=== PATIENT | female | born 1980 | race Caucasian/White ===

== ENCOUNTER 2019-03-27 09:24 | Outpatient (REF) | payer MEDICARE, MEDICAID, SELFPAY ==
[2019-03-27 22:26] LABS: Cholesterol 171 mg/dL (50-200); Glucose 91 mg/dL (70-100); HDL Cholesterol 26 mg/dL (40-60); TSH (W/Ref FT4) 3.45 uIU/mL (0.36-3.74); Triglyceride 413 mg/dL (30-150); Vitamin B12 337 pg/mL (193-986); Vitamin D 25 Total 27.4 ng/ml (30-100)
[2019-03-27 22:58] LABS: LDL CHOLESTEROL 84 mg/dL (<100)
== END 2019-03-27 09:44 ==
LOC: NCHCN 09:24
PROVIDERS: PCP Nurse Practitioner Community Health; Visit Provider Nurse Practitioner Family
DX: R53.83 Other fatigue (principal); F41.8 Other specified anxiety disorders; Z86.39 Personal history of other endocrine, nutritional and metabolic disease; E78.89 Other lipoprotein metabolism disorders; E55.9 Vitamin D deficiency, unspecified
CPT/HCPCS: 80061; 82306; 82947; 83721; 82607; 84443

== ENCOUNTER 2020-06-04 12:58 | Outpatient (REF) | payer MEDICARE, MEDICAID, SELFPAY ==
[2020-06-04 13:56] LABS: Abs Immature Grans 0.03 10^3/uL (0.0-0.06); Absolute Basophil Count 0.04 10^3/uL (0.0-0.2); Absolute Eosinophil Count 0.63 10^3/uL (0.0-0.7); Absolute Monocyte Count 0.87 10^3/uL (0.1-0.8); Basophils % 0.4; Eosinophils % 5.8; HCT 42.1 % (36.0-46.0); HGB 14.3 g/dL (11.2-15.7); Immature Grans % 0.3; Lymphocytes % 28.5; MCH 32.5 pg (27.0-33.0); MCV 95.7 fL (80-95); MPV 10.1 fL (8.0-11.0); Nucleated RBC 0 %; Platelet Count 261 10^3/uL (130-400); RDW 12.1 % (11.7-14.6); RDW-SD 42.3 fL; WBC 10.88 10^3/uL (4.4-10.8)
[2020-06-04 15:00] LABS: Vitamin B12 377 pg/mL (193-986)
== END 2020-06-04 13:18 ==
LOC: NCHCN 12:58
PROVIDERS: PCP Nurse Practitioner Community Health; Visit Provider Nurse Practitioner Community Health
DX: D72.829 Elevated white blood cell count, unspecified (principal); E53.9 Vitamin B deficiency, unspecified
CPT/HCPCS: 82607; 85025

== ENCOUNTER 2020-08-27 17:17 | Outpatient (REF) | payer MEDICARE, MEDICAID, SELFPAY ==
--- NOTE | 2020-08-27 15:30 | PAPFT_PTH ---
PATIENT: Diane Landry LOC: [facility]#:[id number] AGE/SX: 40/F ROOM: RE08/27/[address]: Pauline Alcantar : 1980 BED: DIS: 08/27/2020 SPEC #: [id number] RECD: 08/28/20 12:46 STATUS: WILVER [facility]ANG #: [id number] JESSICA: 08/27/20 15:[address]: Pauline Alcantar DEPT: [facility] Cytology RECD BY: Verito Mora Tissues: 1 - CX/ENDOCX FOR PAP SMEARS Procedures: PAP THIN PREP/UVM Screening HPV DNA PROBE Comments: [id number]
== END 2020-08-27 17:18 | disposition home or self-care (01) ==
LOC: NCHCN 17:17
PROVIDERS: PCP Nurse Practitioner Community Health; Visit Provider Nurse Practitioner Community Health
DX: Z12.4 Encounter for screening for malignant neoplasm of cervix (principal); Z11.51 Encounter for screening for human papillomavirus (HPV)
CPT/HCPCS: 88142; 87624

== ENCOUNTER 2021-01-07 16:24 | Outpatient (REF) | payer MEDICARE, MEDICAID, SELFPAY ==
[2021-01-07 14:40] LABS: Abs Immature Grans 0.05 10^3/uL (0.0-0.06); Absolute Basophil Count 0.06 10^3/uL (0.0-0.2); Absolute Eosinophil Count 0.89 10^3/uL (0.0-0.7); Absolute Lymphocyte Count 3.94 10^3/uL (1.2-3.4); Basophils % 0.5; HCT 42.5 % (36.0-46.0); HGB 14.4 g/dL (11.2-15.7); Immature Grans % 0.5; Lymphocytes % 35.5; MCHC 33.9 % (32.0-36.0); MCV 97.5 fL (80-95); Monocytes % 8.6; Neutrophils % 46.9; Nucleated RBC 0 %; Platelet Count 298 10^3/uL (130-400); RBC 4.36 10^6/uL (3.93-5.22); RDW 11.8 % (11.7-14.6); RDW-SD 42.2 fL; WBC 11.11 10^3/uL (4.4-10.8)
[2021-01-07 14:57] LABS: Absolute Monocyte Count 0.96 10^3/uL (0.1-0.8); Absolute Neutrophil Count 5.21 10^3/uL (1.2-6.7)
[2021-01-07 15:24] LABS: Ferritin 52 ng/mL (8-252)
== END 2021-01-07 16:25 | disposition home or self-care (01) ==
LOC: NCHCN 16:24
PROVIDERS: PCP Nurse Practitioner Community Health; Visit Provider Nurse Practitioner Community Health
DX: D72.829 Elevated white blood cell count, unspecified (principal); G25.81 Restless legs syndrome
CPT/HCPCS: 82728; 85025

== ENCOUNTER 2021-02-26 21:24 | Outpatient (REF) | payer MEDICARE, MEDICAID, SELFPAY ==
[2021-02-26 21:51] LABS: Anion Gap 8.6 mmol/L (3-11); BUN 7 mg/dL (7-18); CO2 26.4 mmol/L (21.0-32.0); CREATININE 0.8 mg/dL (0.55-1.02); Calcium 9.2 mg/dL (8.5-10.1); Chloride 104 mmol/L (98-107); Glucose 134 mg/dL (74-106); Potassium 3.8 mmol/L (3.5-5.1); Sodium 139 mmol/L (136-145)
== END 2021-02-26 21:25 | disposition home or self-care (01) ==
LOC: NCHCN 21:24
PROVIDERS: PCP Nurse Practitioner Community Health; Visit Provider Registered Nurse
DX: Z87.442 Personal history of urinary calculi (principal)
CPT/HCPCS: 80048

== ENCOUNTER 2021-07-14 17:26 | Outpatient (REF) | payer MEDICARE, MEDICAID, SELFPAY ==
[2021-07-14 20:21] LABS: Anion Gap 10.6 mmol/L (3-11); BUN 9 mg/dL (7-18); CO2 26.4 mmol/L (21.0-32.0); CREATININE 0.8 mg/dL (0.55-1.02); Calcium 9.1 mg/dL (8.5-10.1); Chloride 102 mmol/L (98-107); Glucose 86 mg/dL (74-106); Potassium 4.1 mmol/L (3.5-5.1); Sodium 139 mmol/L (136-145); TSH (W/Ref FT4) 5.42 uIU/mL (0.36-3.74)
[2021-07-14 20:54] LABS: FREE T4 0.58 ng/dL (0.76-1.46)
== END 2021-07-14 17:27 | disposition home or self-care (01) ==
LOC: NCHCN 17:26
PROVIDERS: PCP Nurse Practitioner Community Health; Visit Provider Nurse Practitioner Family
DX: I10 Essential (primary) hypertension (principal)
CPT/HCPCS: 80048; 84439; 84443

== ENCOUNTER 2022-04-06 10:25 | Outpatient (REF) | payer MEDICARE, MEDICAID, SELFPAY ==
[2022-04-06 14:53] LABS: TSH 8.68 uIU/mL (0.36-3.74)
== END 2022-04-06 10:26 | disposition home or self-care (01) ==
LOC: NCHCN 10:25
PROVIDERS: PCP Nurse Practitioner Community Health; Visit Provider Nurse Practitioner Family
DX: R94.6 Abnormal results of thyroid function studies (principal)
CPT/HCPCS: 84439; 84443

== ENCOUNTER 2022-05-12 10:30 | Outpatient (REF) | payer MEDICARE, MEDICAID, SELFPAY ==
[2022-05-12 15:18] LABS: TSH 4.47 uIU/mL (0.36-3.74)
== END 2022-05-12 10:31 | disposition home or self-care (01) ==
LOC: NCHCN 10:30
PROVIDERS: PCP Nurse Practitioner Community Health; Visit Provider Nurse Practitioner Family
DX: E03.9 Hypothyroidism, unspecified (principal)
CPT/HCPCS: 84443

== ENCOUNTER 2022-07-07 12:15 | Outpatient (REF) | payer MEDICARE, MEDICAID, SELFPAY ==
[2022-07-07 15:40] LABS: ALT 29 U/L (14-59); AST 22 U/L (15-37); Albumin 4.1 g/dL (3.4-5.0); Alkaline Phosphatase 71 U/L (46-116); Anion Gap 14.8 mmol/L (3-11); BUN 10 mg/dL (7-18); Bilirubin, Total 0.3 mg/dL (0.2-1.0); CO2 23.2 mmol/L (21.0-32.0); CREATININE 0.9 mg/dL (0.55-1.02); Calcium 9.5 mg/dL (8.5-10.1); Chloride 99 mmol/L (98-107); Estimated GFR 81.86 (mL/min/1.73m2); Glucose 129 mg/dL (74-106); Potassium 3.7 mmol/L (3.5-5.1); Sodium 137 mmol/L (136-145); TSH 8.68 uIU/mL (0.36-3.74); Total Protein 8.3 g/dL (6.4-8.2)
== END 2022-07-07 12:16 | disposition home or self-care (01) ==
LOC: NCHCN 12:15
PROVIDERS: PCP Nurse Practitioner Community Health; Visit Provider Nurse Practitioner Family
DX: E03.9 Hypothyroidism, unspecified (principal)
CPT/HCPCS: 80053; 84443

== ENCOUNTER 2022-08-17 21:29 | Outpatient (REF) | payer MEDICARE, MEDICAID, SELFPAY ==
[2022-08-17 22:05] LABS: TSH 2.34 uIU/mL (0.36-3.74)
== END 2022-08-17 21:30 | disposition home or self-care (01) ==
LOC: NCHCN 21:29
PROVIDERS: PCP Nurse Practitioner Community Health; Visit Provider Nurse Practitioner Family
DX: E03.9 Hypothyroidism, unspecified (principal)
CPT/HCPCS: 84443

== ENCOUNTER 2023-06-30 09:26 | Outpatient (REF) | payer MEDICARE, MEDICAID, SELFPAY ==
--- OUTSIDE RECORDS SUMMARY | 2023-06-30 09:28 | XMS_ITS | CCD ---
Author Name Unknown Address [address] [place] [address] [phone] Organization Unknown Address [address] [place] [address] [phone] Care Team Providers Care Lithographers Printer Name Role Phone ANTHONY MURRAY Attending Physician [phone] Vital Signs Unknown or Not Available. Allergies Allergy Code Allergy Type Reaction Status CAT GUT SUTURES {Clinical monitoring unavailable} 0 Drug allergy INFECTION Active Procedures Unknown or Not Available. History of Immunizations Unknown or Not Available. Problems Unknown or Not Available. Results Unknown or Not Available. Active Medications Medication Code Dose Units Frequency Route Modificatio n Start Date/Time clonazePAM 1MG Oral Tablet [id number] 1 MILLIGRAMS DAILY ORAL 019 18:33 Prescription Detail TAKE 1 MILLIGRAMS ORAL DAILY LYRICA 100MG ORAL CAPSULE 0 100 MILLIGRAMS THREE TIMES A DAY ORAL 06/27/2018 18:33 Prescription Detail TAKE 100 MILLIGRAMS ORAL THREE TIMES A D AY Sertraline HCl 100MG Oral Tablet [id number] 100 MILLIGRAMS DAILY ORAL 9 18:33 Prescription Detail TAKE 100 MILLIGRAMS ORAL DAILY Medications Administered During Visit Unknown or Not Available. Encounters Encounter Diagnosis Diagnosis Code Start Date Encounter for screening mamm ogram for malignant neoplasm of breast Z1231 07/28/2022 Social History Smoking Status Code Start Date End Date Current every day smoker [id number] 05/23/2002 Patient Decision Aids Unknown or Not Available. Discharge Instructions You were admitted to [facility] on 07/28/2022 14:27 with a principal diagnosis of Encounter for screening mammogram for malignant neoplasm of breast You were discharged from [facility] on 07/28/2022 14:27 Should you have any questions prior to discharge, please contact a member of your healthcare team. If you have left the hospital and have any questions, please contact your primary care physician. Chief Complaint and Reason For Visit Chief Complaint Date of Onset SCR Function Status Unknown or Not Available. Plan of Care Unknown or Not Available. Referral/Transition of Care Unknown or Not Available.
--- OUTSIDE RECORDS SUMMARY | 2023-06-30 09:28 | XMS_ITS | CCD ---
Author Name Unknown Address [address] [place] [address] [phone] Organization Unknown Address [address] [place] [address] [phone] Care Team Providers Care Rosin Barrel Filler Name Role Phone GUILLAUME DE LA CRUZ Attending Physician [phone] Vital Signs Unknown or Not Available. Allergies Allergy Code Allergy Type Reaction Status CAT GUT SUTURES {Clinical monitoring unavailable} 0 Drug allergy INFECTION Active Procedures Unknown or Not Available. History of Immunizations Unknown or Not Available. Problems Unknown or Not Available. Results Unknown or Not Available. Active Medications Medication Code Dose Units Frequency Route Modificatio n Start Date/Time clonazePAM 1MG Oral Tablet 954469 1 MILLIGRAMS DAILY ORAL 019 18:33 Prescription Detail TAKE 1 MILLIGRAMS ORAL DAILY LYRICA 100MG ORAL CAPSULE 0 100 MILLIGRAMS THREE TIMES A DAY ORAL 06/27/2018 18:33 Prescription Detail TAKE 100 MILLIGRAMS ORAL THREE TIMES A D AY Sertraline HCl 100MG Oral Tablet 996460 100 MILLIGRAMS DAILY ORAL 9 18:33 Prescription Detail TAKE 100 MILLIGRAMS ORAL DAILY Medications Administered During Visit Unknown or Not Available. 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 Discharge Instructions You were admitted to [facility] on 08/11/2022 16:12 with a principal diagnosis of Other cardiomyopathies You were discharged from [facility] on 08/11/2022 16:12 Should you have any questions prior to discharge, please contact a member of your healthcare team. If you have left the hospital and have any questions, please contact your primary care physician. Chief Complaint and Reason For Visit Unknown or Not Available. Function Status Unknown or Not Available. Plan of Care Unknown or Not Available. Referral/Transition of Care Unknown or Not Available.
--- OUTSIDE RECORDS SUMMARY | 2023-06-30 09:28 | XMS_ITS | CCD ---
Author Name Unknown Address [address] [place] [address] [phone] Organization Unknown Address [address] [place] [address] [phone] Care Team Providers Care Rn Circulating Name Role Phone ANTHONY MURRAY Attending Physician [phone] Vital Signs Unknown or Not Available. Allergies Allergy Code Allergy Type Reaction Status CAT GUT SUTURES {Clinical monitoring unavailable} 0 Drug allergy INFECTION Active Procedures Unknown or Not Available. History of Immunizations Unknown or Not Available. Problems Unknown or Not Available. Results Unknown or Not Available. Active Medications Medication Code Dose Units Frequency Route Modificatio n Start Date/Time clonazePAM 1MG Oral Tablet 206592 1 MILLIGRAMS DAILY ORAL 019 18:33 Prescription Detail TAKE 1 MILLIGRAMS ORAL DAILY LYRICA 100MG ORAL CAPSULE 0 100 MILLIGRAMS THREE TIMES A DAY ORAL 06/27/2018 18:33 Prescription Detail TAKE 100 MILLIGRAMS ORAL THREE TIMES A D AY Sertraline HCl 100MG Oral Tablet 414563 100 MILLIGRAMS DAILY ORAL 9 18:33 Prescription Detail TAKE 100 MILLIGRAMS ORAL DAILY Medications Administered During Visit Unknown or Not Available. Encounters Encounter Diagnosis Diagnosis Code Start Date Other abnormal and inconclus julio cesar findings on diagnostic imaging of breast R928 08/04/2022 Social History Smoking Status Code Start Date End Date Current every day smoker [id number] 05/23/2002 Patient Decision Aids Unknown or Not Available. Discharge Instructions You were admitted to [facility] on 08/04/2022 12:59 with a principal diagnosis of Other abnormal and inconclusive findings on diagnostic imaging of breast You were discharged from [facility] on 08/04/2022 12:59 Should you have any questions prior to discharge, please contact a member of your healthcare team. If you have left the hospital and have any questions, please contact your primary care physician. Chief Complaint and Reason For Visit Chief Complaint Date of Onset CALLBACK 03/08/23 Function Status Unknown or Not Available. Plan of Care Unknown or Not Available. Referral/Transition of Care Unknown or Not Available.
--- OUTSIDE RECORDS SUMMARY | 2023-06-30 09:29 | XMS_ITS | CCD ---
Author Name Unknown Address [address] [place] [address] [phone] Organization Unknown Address [address] [place] [address] [phone] Care Team Providers Care Career Manager Name Role Phone GUILLAUME DE LA CRUZ Attending Physician [phone] GUILLAUME DE LA CRUZ Rounding (Secondary) Physician [phone] Vital Signs Unknown or Not Available. Allergies Allergy Code Allergy Type Reaction Status CAT GUT SUTURES {Clinical monitoring unavailable} 0 Drug allergy INFECTION Active Procedures Unknown or Not Available. History of Immunizations Unknown or Not Available. Problems Unknown or Not Available. Results Unknown or Not Available. Active Medications Medication Code Dose Units Frequency Route Modificatio n Start Date/Time clonazePAM 1MG Oral Tablet 462898 1 MILLIGRAMS DAILY ORAL 019 18:33 Prescription Detail TAKE 1 MILLIGRAMS ORAL DAILY LYRICA 100MG ORAL CAPSULE 0 100 MILLIGRAMS THREE TIMES A DAY ORAL 06/27/2018 18:33 Prescription Detail TAKE 100 MILLIGRAMS ORAL THREE TIMES A D AY Sertraline HCl 100MG Oral Tablet 008611 100 MILLIGRAMS DAILY ORAL 9 18:33 Prescription Detail TAKE 100 MILLIGRAMS ORAL DAILY Medications Administered During Visit Unknown or Not Available. Encounters Encounter Diagnosis Diagnosis Code Start Date Other cardiomyopathies I428 2 Social History Smoking Status Code Start Date End Date Current every day smoker [id number] 05/23/2002 Patient Decision Aids Unknown or Not Available. Discharge Instructions You were admitted to [facility] on 01/28/2022 08:10 with a principal diagnosis of Other cardiomyopathies You were discharged from [facility] on 01/28/2022 00:00 Should you have any questions prior to [...]
--- OUTSIDE RECORDS SUMMARY | 2023-06-30 09:29 | XMS_ITS | CCD ---
Author Name Unknown Address [address] [place] [address] [phone] Organization Unknown Address [address] [place] [address] [phone] Care Team Providers Care Cigar Patcher Name Role Phone ROSENDO HOYOS Attending Physician [phone] ROSENDO HOYOS Rounding (Secondary) Physician [phone] Vital Signs Unknown or Not Available. Allergies Allergy Code Allergy Type Reaction Status CAT GUT SUTURES {Clinical monitoring unavailable} 0 Drug allergy INFECTION Active Procedures Unknown or Not Available. History of Immunizations Unknown or Not Available. Problems Unknown or Not Available. Results Unknown or Not Available. Active Medications Medication Code Dose Units Frequency Route Modificatio n Start Date/Time clonazePAM 1MG Oral Tablet 317664 1 MILLIGRAMS DAILY ORAL 019 18:33 Prescription Detail TAKE 1 MILLIGRAMS ORAL DAILY LYRICA 100MG ORAL CAPSULE 0 100 MILLIGRAMS THREE TIMES A DAY ORAL 06/27/2018 18:33 Prescription Detail TAKE 100 MILLIGRAMS ORAL THREE TIMES A D AY Sertraline HCl 100MG Oral Tablet 635013 100 MILLIGRAMS DAILY ORAL 9 18:33 Prescription Detail TAKE 100 MILLIGRAMS ORAL DAILY Medications Administered During Visit Unknown or Not Available. Encounters Encounter Diagnosis Diagnosis Code Start Date Essential (primary) hypertension I10 07/31/2021 Social History Smoking Status Code Start Date End Date Current every day smoker [id number] 05/23/2002 Patient Decision Aids Unknown or Not Available. Discharge Instructions You were admitted to [facility] on 07/31/2021 00:00 with a principal diagnosis of Essential (primary) hypertension You were discharged from [facility] on 07/31/2021 00:00 Should you have any questions prior [...]
--- OUTSIDE RECORDS SUMMARY | 2023-06-30 09:29 | XMS_ITS | CCD ---
Author Name Unknown Address [address] [place] [address] [phone] Organization Unknown Address [address] [place] [address] [phone] Care Team Providers Care Contact Lens Fitter Name Role Phone ROSENDO HOYOS Attending Physician [phone] ROSENDO HOYOS Rounding (Secondary) Physician [phone] Vital Signs Unknown or Not Available. Allergies Allergy Code Allergy Type Reaction Status CAT GUT SUTURES {Clinical monitoring unavailable} 0 Drug allergy INFECTION Active Procedures Unknown or Not Available. History of Immunizations Unknown or Not Available. Problems Unknown or Not Available. Results Unknown or Not Available. Active Medications Medication Code Dose Units Frequency Route Modificatio n Start Date/Time clonazePAM 1MG Oral Tablet 636244 1 MILLIGRAMS DAILY ORAL 019 18:33 Prescription Detail TAKE 1 MILLIGRAMS ORAL DAILY LYRICA 100MG ORAL CAPSULE 0 100 MILLIGRAMS THREE TIMES A DAY ORAL 06/27/2018 18:33 Prescription Detail TAKE 100 MILLIGRAMS ORAL THREE TIMES A D AY Sertraline HCl 100MG Oral Tablet 862990 100 MILLIGRAMS DAILY ORAL 9 18:33 Prescription Detail TAKE 100 MILLIGRAMS ORAL DAILY Medications Administered During Visit Unknown or Not Available. Encounters Encounter Diagnosis Diagnosis Code Start Date Other forms of dyspnea R0609 Social History Smoking Status Code Start Date End Date Current every day smoker [id number] 05/23/2002 Patient Decision Aids Unknown or Not Available. Discharge Instructions You were admitted to [facility] on 05/13/2021 09:15 with a principal diagnosis of Other forms of dyspnea You were discharged from [facility] on 05/13/2021 00:00 Should you have any questions prior [...]
--- OUTSIDE RECORDS SUMMARY | 2023-06-30 09:29 | XMS_ITS | CCD ---
Author Name Unknown Address [address] [place] [address] [id number] Organization Unknown Address [address] [place] [address] [phone] Care Team Providers Care Mixed Crop And Livestock Farm Worker Name Role Phone ANTHONY MURRAY Attending Physician [phone] Vital Signs Unknown or Not Available. Allergies Allergy Code Allergy Type Reaction Status CAT GUT SUTURES {Clinical monitoring unavailable} 0 Drug allergy INFECTION Active Procedures Unknown or Not Available. History of Immunizations Unknown or Not Available. Problems Unknown or Not Available. Results ANTI THYROGLOBULIN ANTIBODY - Collect Date/Time: 04/13/2022 08:01 Test Name Code Test Result Test Units Test Ref Rang e Thyroglobulin Antibody <15 N/A <= 60 Active Medications Medication Code Dose Units Frequency Route Modificatio n Start Date/Time clonazePAM 1MG Oral Tablet 468677 1 MILLIGRAMS DAILY ORAL 019 18:33 Prescription Detail TAKE 1 MILLIGRAMS ORAL DAILY LYRICA 100MG ORAL CAPSULE 0 100 MILLIGRAMS THREE TIMES A DAY ORAL 06/27/2018 18:33 Prescription Detail TAKE 100 MILLIGRAMS ORAL THREE TIMES A D AY Sertraline HCl 100MG Oral Tablet 817862 100 MILLIGRAMS DAILY ORAL 9 18:33 Prescription Detail TAKE 100 MILLIGRAMS ORAL DAILY Medications Administered During Visit Unknown or Not Available. Encounters Encounter Diagnosis Diagnosis Code Start Date Hypothyroidism [id number] 04/13/2022 Social History Smoking Status Code Start Date End Date Current every day smoker [id number] 05/23/2002 Patient Decision Aids Unknown or Not Available. Discharge Instructions You were admitted to on 04/13/2022 07:45 with a principal diagnosis of Hypothyroidism, unspecified You had the following tests done:ANTI THYROGLOBULIN ANTIBODY You were discharged from on 04/13/2022 07:45 Should you have any questions prior to discharge, please contact a member of your healthcare team. If you have left the hospital and have any questions, please contact your primary care physician. Chief Complaint and Reason For Visit Chief Complaint Date of Onset KUB Function Status Unknown or Not Available. Plan of Care Unknown or Not Available. Referral/Transition of Care Unknown or Not Available.
--- OUTSIDE RECORDS SUMMARY | 2023-06-30 09:29 | XMS_ITS | CCD ---
Author Name Unknown Address [address] [place] [address] [phone] Organization Unknown Address [address] [place] [address] [phone] Care Team Providers Care Macroeconomics Professor Name Role Phone ROSENDO HOYOS Attending Physician [phone] Vital Signs Unknown or Not Available. Allergies Allergy Code Allergy Type Reaction Status CAT GUT SUTURES {Clinical monitoring unavailable} 0 Drug allergy INFECTION Active Procedures Unknown or Not Available. History of Immunizations Unknown or Not Available. Problems Unknown or Not Available. Results BASIC METABOLIC PANEL (BMP) - Collect Date/Time: 05/12/2021 15:10 Test Name Code Test Result Test Units Test Ref Rang e GLUCOSE 2345-7 118 mg/dL L=70 H=116 BUN 3094-0 9 mg/dL L=6 H=25 CREATININE 2160-0 0.96 mg/dL L=0.51 H=0.95 SODIUM SERUM 2951-2 135 mmol/L L=136 H=145 POTASSIUM SERUM 2823-3 3.5 mmol/L L=3.4 H=5 .2 CHLORIDE SERUM 2075-0 101 mmol/L L=96 H=110 CARBON DIOXIDE (CO2) 2028-9 26 mmol/L L=22 H=34 ANION GAP 41023-1 7.8 mmol/L CALCIUM SERUM 46957-8 9.0 mg/dL L=8.2 H=10. 2 AGE 40 years eGFR (non-Afr.Amer.) 94698-8 64 mL/min eGFR (Afr-Somali) 79151-7 77 mL/min LIPID PANEL* - Collect Date/ Time: 05/12/2021 15:10 Test Name Code Test Result Test Units Test Ref Rang e CHOLESTEROL 2093-3 169 mg/dL L=0 H=200 TRIGLYCERIDES 2571-8 350 mg/dL L=45 H=191 HDL 2085-9 31 mg/dL L=34 H=88 non-HDL-C 51608-2 138 mg/dL L=0 H=160 LDL (CALC) 44417-7 68 mg/dL L=0 H=130 % HDL 18.3 % Chol/HDL Ratio 9830-1 5.5 L=0.0 H=4. 4 CHD Relative Risk 1.2 x Avg L=0.0 H =1.0 LDL/HDL Ratio 55955-6 2.2 L=0.0 H=3.2 CHD Relative Risk. 0.7 x Avg L=0.0 H=1.0 FASTING STATUS: NON FASTING N/A CBC W/ DIFFERENTIAL* - Colle ct Date/Time: 05/12/2021 15:10 Test Name Code Test Result Test Units Test Ref Rang e WBC 6690-2 9.87 th/cmm L=5.00 H=10.00 NEUT % 50.1 % L=40.0 H=80.0 LYMPH % 37.4 % L=10.0 H=50.0 MONO % 71925-9 5.7 % L=2.0 H=12.0 EOS % 5.8 % L=0.0 H=8.0 BASO % 0.7 % L=0.0 H=3.0 IG % 2514-8 0.3 % L=0.0 H=1.1 NRBC % 56637-9 0.0 % L=0.0 H=0.0 NEUT abs count 751-8 5.0 th/cmm L=1.6 H=8. 4 LYMPH abs count 731-0 3.7 th/cmm L=1.5 H=4 .0 MONO abs count 742-7 0.6 th/cmm L=0.2 H=1. 0 EOS abs count 711-2 0.6 th/cmm L=0.0 H=0.5 BASO abs count 704-7 0.1 th/cmm L=0.0 H=0. 2 IG abs count 47161-3 0.0 th/cmm L=0.0 H=0.1 NRBC abs count 73466-0 0.0 mil/cmm L=0.0 H=0. 0 RBC 789-8 4.51 mil/cmm L=3.90 H=5.40 HEMOGLOBIN 718-7 14.9 gm/dL L=12.0 H=16.0 HEMATOCRIT 4544-3 42 % L=37 H=47 MCV 787-2 93 fL L=82 H=92 MCH 785-6 33.0 pg L=27.0 H=31.0 MCHC 786-4 35.5 % L=32.0 H=36.0 RDW-SD 788-0 40.2 fL L=39.0 H=49.0 PLATELET COUNT 777-3 315 th/cmm L=150 H=45 0 Active Medications Medication Code Dose Units Frequency Route Modificatio n Start Date/Time clonazePAM 1MG Oral Tablet 220734 1 MILLIGRAMS DAILY ORAL 019 18:33 Prescription Detail TAKE 1 MILLIGRAMS ORAL DAILY LYRICA 100MG ORAL CAPSULE 0 100 MILLIGRAMS THREE TIMES A DAY ORAL 06/27/2018 18:33 Prescription Detail TAKE 100 MILLIGRAMS ORAL THREE TIMES A D AY Sertraline HCl 100MG Oral Tablet 403698 100 MILLIGRAMS DAILY ORAL 9 18:33 Prescription Detail TAKE 100 MILLIGRAMS ORAL DAILY Medications Administered During Visit Unknown or Not Available. Encounters Encounter Diagnosis Diagnosis Code Start Date Dyspnea [id number] 05/13/2021 Social History Smoking Status Code Start Date End Date Current every day smoker 533644382 05/23/2002 Patient Decision Aids Unknown or Not Available. Discharge Instructions You were admitted to [facility] on 05/13/2021 20:30 with a principal diagnosis of Dyspnea, unspecified You had the following tests done:BASIC METABOLIC PANEL (BMP)CBC W/ DIFFERENTIAL*LIPID PANEL* You were discharged from [facility] on 05/13/2021 20:30 Should you have any questions prior to [...]
--- OUTSIDE RECORDS SUMMARY | 2023-06-30 09:29 | XMS_ITS | CCD ---
Author Name Unknown Address [address] [place] [address] [phone] Organization Unknown Address [address] [place] [address] [phone] Care Team Providers Care Behavior Clinician Name Role Phone JAMEL SUH Attending Physician [phone] Vital Signs Unknown or Not Available. Allergies Allergy Code Allergy Type Reaction Status CAT GUT SUTURES {Clinical monitoring unavailable} 0 Drug allergy INFECTION Active Procedures Unknown or Not Available. History of Immunizations Unknown or Not Available. Problems Unknown or Not Available. Results [facility] DE[facility]EL[facility] JESUSLYNNETTEX* - Rene ect Date/Time: 06/16/2021 15:55 Test Name Code Test Result Test Units Test Ref Rang e Tier- EXPOSURE N/A SARS COV2 RNA: 73295-4 NEGATIVE N/A REFERENCE RANGE: NEGAT Active Medications Medication Code Dose Units Frequency Route Modificatio n Start Date/Time clonazePAM 1MG Oral Tablet 155990 1 MILLIGRAMS DAILY ORAL 019 18:33 Prescription Detail TAKE 1 MILLIGRAMS ORAL DAILY LYRICA 100MG ORAL CAPSULE 0 100 MILLIGRAMS THREE TIMES A DAY ORAL 06/27/2018 18:33 Prescription Detail TAKE 100 MILLIGRAMS ORAL THREE TIMES A D AY Sertraline HCl 100MG Oral Tablet 236757 100 MILLIGRAMS DAILY ORAL 9 18:33 Prescription Detail TAKE 100 MILLIGRAMS ORAL DAILY Medications Administered During Visit Unknown or Not Available. Encounters Encounter Diagnosis Diagnosis Code Start Date Exposure to SARS-CoV-2 [id number] Social History Smoking Status Code Start Date End Date Current every day smoker 172205583 05/23/2002 Patient Decision Aids Unknown or Not Available. Discharge Instructions You were admitted to [facility] on 06/16/2021 16:30 with a principal diagnosis of Contact with and (suspected) exposure to COVID-19 You had the following tests done:VARGAS BRIGHTID RHEONIX* You were discharged from [facility] on 06/16/2021 16:30 Should you have any questions prior to [...]
--- OUTSIDE RECORDS SUMMARY | 2023-06-30 09:29 | XMS_ITS | CCD ---
Author Name Unknown Address [address] [place] [address] [phone] Organization Unknown Address [address] [place] [address] [phone] Care Team Providers Care Tinsmith Apprentice Name Role Phone CAMRON SPENCER Attending Physician [phone] ANTHONY MURRAY Rounding (Secondary) Physician [phone] Vital Signs Unknown or Not Available. Allergies Allergy Code Allergy Type Reaction Status CAT GUT SUTURES {Clinical monitoring unavailable} 0 Drug allergy INFECTION Active Procedures Unknown or Not Available. History of Immunizations Unknown or Not Available. Problems Unknown or Not Available. Results Unknown or Not Available. Active Medications Medication Code Dose Units Frequency Route Modificatio n Start Date/Time clonazePAM 1MG Oral Tablet 433501 1 MILLIGRAMS DAILY ORAL 019 18:33 Prescription Detail TAKE 1 MILLIGRAMS ORAL DAILY LYRICA 100MG ORAL CAPSULE 0 100 MILLIGRAMS THREE TIMES A DAY ORAL 06/27/2018 18:33 Prescription Detail TAKE 100 MILLIGRAMS ORAL THREE TIMES A D AY Sertraline HCl 100MG Oral Tablet 543395 100 MILLIGRAMS DAILY ORAL 9 18:33 Prescription Detail TAKE 100 MILLIGRAMS ORAL DAILY Medications Administered During Visit Unknown or Not Available. Encounters Encounter Diagnosis Diagnosis Code Start Date Fibromyalgia M797 05/06/2022 Social History Smoking Status Code Start Date End Date Current every day smoker [id number] 05/23/2002 Patient Decision Aids Unknown or Not Available. Discharge Instructions You were admitted to [facility] on 05/06/2022 11:54 with a principal diagnosis of Fibromyalgia You were discharged from [facility] on 05/06/2022 11:28 Should you have any questions prior to [...]
--- OUTSIDE RECORDS SUMMARY | 2023-06-30 09:30 | XMS_ITS | Continuity of Care Document ---
Author Name Unknown Organization [facility] Address [address] [place] [address] Care Team Providers Care Telemarketing Sales Representative Name Role Phone Jennifer Carvajal Primary Care Physician [facility] Date(s): 07/12/22 - 07/12/22 [facility] [address] [place] [address] Encounter Diagnosis Obstructive sleep apnea syndrome(Discharge Diagnosis) - 07/12/22 Discharge Disposition: Home or Self Care Attending Physician: Tara Reilly CIVIL SERVICE WORKER Allergies, Adverse Reactions, Alerts Substance Reaction Severity Status buPROPion Unknown Active varenicline Unknown Active Assessment and Plan Future Appointments Functional Status 07/12/22 Other exposure to Infectious Disease Non e Medications amitriptyline 25 mg oral tablet 25 mg = 1 tab, Oral, every night at bedtime, Take with 10 mg Start Date: 02/02/22 Status: Ordered aspirin 81 mg oral tablet, chewable 81 mg = 1 tab, Chewed, Daily Start Date: 02/02/22 Status: Ordered busPIRone 15 mg oral tablet 15 mg = 1 tab, Oral, BID Start Date: 02/02/22 Status: Ordered CPAP CPAP, Dispense auto CPAP 6-16 cm with heated humidity, compliance capabilities, supplies PRN and mask of choice. [facility], Supply, See instructions, # 1 EA, 0 Refill(s) Start Date: 10/22/21 Status: Ordered hydrOXYzine pamoate 25 mg oral capsule 25 mg = 1 cap, Oral, TID Start Date: 02/02/22 Status: Ordered losartan 50 mg oral tablet 50 mg = 1 tab, Oral, Daily Start Date: 02/02/22 Status: Ordered Metoprolol Succinate ER 50 mg oral tablet, extended release 50 mg = 1 tab, Oral, Daily Start Date: 02/02/22 Status: Ordered NAC 600 mg oral capsule 600 mg = 1 cap, Oral, BID Start Date: 02/02/22 Status: Ordered omeprazole 40 mg oral delayed release capsule 40 mg = 1 cap, Oral, BID Start Date: 02/02/22 Status: Ordered pregabalin 50 mg oral capsule Start Date: 02/02/22 Status: Ordered tamsulosin 0.4 mg oral capsule Start Date: 02/02/22 Status: Ordered Vitamin B-12 100 mcg oral tablet 50 mcg = 0.5 tab, Oral, Daily Start Date: 02/02/22 Status: Ordered Problem List Condition Confirmation Course Effective Dates Status H ealth Status Informant Amnesia Confirmed 09/12/19 Active Anal fissure Confirmed 09/12/19 Active Anxiety Confirmed 09/12/19 Active Borderline personality disorder Confirmed 09/12/19 Active Calcium renal calculus Confirmed 09/12/19 Active Fatigue Confirmed 09/12/19 Active Fibromyalgia Confirmed 09/12/19 Active Hand eczema Confirmed 09/12/19 Active Headache Confirmed 09/12/19 Active Mood disorder Confirmed 09/12/19 Active Narcissistic personality disorder Confirmed 09/12/19 Active Obsessive-compulsive disorder Confirmed 09/12/19 Active Obstructive sleep apnea syndrome 1 Confirmed 04/20/21 Active Overweight Confirmed 09/12/19 Active 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 Active Posttraumatic stress disorder Confirmed 09/12/19 Active Tobacco user Confirmed 09/12/19 Active 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 1 Sex Female 1not daily, from time to time Physician Outpatient Note * Tara Reilly CIVIL SERVICE WORKER: PERFORM Event Display: Office Clinic Note Physician Authored Date: [id number] DIANE GUILLERMO :1980 Age:41 years Sex:Female Visit Date:07/12/2022 Primary Care Physician: Jennifer Carvajal CIVIL SERVICE WORKER History of Present Illness Diane Guillermo has a Zoom visit for PENELOPE follow-up. Patient has given consent to have a telehealth visit. Patient is at home, provider is in the office. Diane was seen by me on 04/05/2022. She has a medical history to include anxiety, borderline personality disorder, OCD, narcissistic personality disorder, fibromyalgia, PTSD, IBS, GERD, diverticulitis and eczema. She reportedly had a sleep evaluation over 15 years ago and those records were requested but never received. She noted symptoms of snoring, fatigue, memory impairment, and??nocturnal reflux. ?? Polysomnogram was completed on 12/28/2020 (BMI 36.04). Sleep efficiency was 84%, AHI 2.5/hr, RDI 11.7/hr, REM AHI N/A, REM RDI N/A, supine AHI 2/hr, right lateral AHI 4/hr, left lateral AHI 2/hr, sp02 gabriella 84%, 7 minutes were spent at a saturation <88%, arousal index 24/hr, PLMi 38.3/hr, PLM arousal index 8/hr. EKG showed NSR with PAC's and PVC's. Last visit she was using CPAP 5-10 cm but removing it every night in sleep (averaging <3 hours/night with CPAP). I set CPAP to 7-12 cm and she later reported she was continuing to do this. I put in an order to set CPAP to 4-8 cm and ordered a BiPAP titration study. ?? Titration 09/09/2021 (BMI 36.04), CPAP titrated from 4 to 6 cm and BiPAP 8/4 cm all with residual snoring, recommended trying CPAP 8-12 cm. ?? Her insurance then required an updated PSG because she did not meet initial compliance requirements. They also required a new face to face visit and order before she could start CPAP again. PSG 03/10/2022 (BMI 36.04), AHI 2/hr, RDI 9.9/hr, sp02 gabriella 91%, arousal index 20/hr,??PLMi 8.8/hr, PLMai 2.9/hr. ?? Last visit I ordered BiPAP 14/4/4 cm. Diane says has had this for almost two months and that thingsare going well with BiPAP. She feels it is much easier to breathe with than the CPAP was. She is enjoying it. She finds that she is still removing it in her sleep and is unaware of this. She does this pretty early on in the night based on her hours of use. She tends to to wake around 5 am to get her son up and she reapplies it for another 1-2 hours. She is using an Airfit F20 size medium and??she finds this comfortable and tolerates it well. She has adjusted the humidity as needed, she was getting condensation initially and this is better when she turned the humidity down but now she gets michelle dry mouth at times. She is not snoring with CPAP, she is not having nocturia. She still has fatigue and has not noted any significant change in this. ? ESS today 08/13 COMPLIANCE DATA REVIEWED WITH PATIENT: Dates -07/08/22,??Days used ??, average use??4 hours, 4 minutes,??95 th percentile IPAP/EPAP??pressure 8.7/4.7??cm,?95 th percentile air leak 3.6??lpm, AHI 0.2/hr Physical Exam Vitals & Measurements HT:??165??cm?? WT:??104.33??kg?? BMI:??38.32?? BSA:??2.19?? Assessment/Plan 1.??Obstructive sleep apnea syndrome??G47.33 Mild PENELOPE with a RDI of 9.9/hr. She has tried to use CPAP at various settings and pulls it off in her sleep every night so she did not meet compliance requirements and her CPAP was reclaimed. She had a titration study and CPAP was only titrated to 6 cm and BiPAP to 8/4 cm with residual snoring. CPAP8-12 cm was recommended. I previously had her at 7-12 cm and she still removed it every night so??last visit I ordered??BiPAP given she has failed CPAP. BiPAP Imax 14 cm, Ramirez 4 cm, PS 4 cm. She is using the QHS and tolerates it well. Her AHI is excellent but she is unfortunately still removing it every night after only 1-2 hours of sleep. She is not sure why. She is having a very dry mouth at times and turned her humidity down because of condensation. I explained that she should turn the humidity up and insulate the tube (by increasing tube temp, CPAP sleeve or pulling the tube under the covers). I suggested she set an alarm about two hours after she falls asleep so she can reapply the CPAP at that time. I will see her back in about month. She is advised to keep up with the routine mainte nance of the machine and to clean/replace parts as needed. I provided greater than 30 minutes in the care of this patient, more than half the time was spent in [id number] counseling. Ordered: Follow-Up Appointment Request SIXTO, *Est. 08/09/22 +/- 4 days, Future Order, In [facility] ?? Problem List/Past Medical History Ongoing Amnesia Anal fissure Anxiety Borderline personality disorder Calcium renal calculus Fatigue Fibromyalgia Hand eczema Headache Mood disorder Narcissistic personality disorder Obsessive-compulsive disorder Obstructive sleep apnea syndrome Overweight Periodic leg movements of sleep Posttraumatic stress disorder Tobacco user Trichotillomania Umbilical hernia Historical No qualifying data Medications amitriptyline 25 mg oral tablet, 25 mg= 1 tab, Oral, every night at bedtime aspirin 81 mg oral tablet, chewable, 81 mg= 1 tab, Chewed, Daily busPIRone 15 mg oral tablet, 15 mg= 1 tab, Oral, BID CPAP, See instructions hydrOXYzine pamoate 25 mg oral capsule, 25 mg= 1 cap, Oral, TID losartan 50 mg oral tablet, 50 mg= 1 tab, Oral, Daily Metoprolol Succinate ER 50 mg oral tablet, extended release, 50 mg= 1 tab, Oral, Daily NAC 600 mg oral capsule, 600 mg= 1 cap, Oral, BID omeprazole 40 mg oral delayed release capsule, 40 mg= 1 cap, Oral, BID pregabalin 50 mg oral capsule tamsulosin 0.4 mg oral capsule Vitamin B-12 100 mcg oral tablet, 50 mcg= 0.5 tab, Oral, Daily Allergies buPROPion varenicline Social History Electronic Cigarette/Vaping Electronic Cigarette Use: Never. Tobacco Current some day tobacco user Tobacco Use:.- Comments: not daily, from time to time Electronically Signed on 07/12/22 09:39 AM Tara Reilly NP Patient Care team information Care Team Personnel Name: Jennifer Carvajal NP Position: No Access Member Role: Primary Care Physician Address: Address: [address] [place] [phone] [place]
--- OUTSIDE RECORDS SUMMARY | 2023-06-30 09:30 | XMS_ITS | CCD ---
Author Name Unknown Address [address] [place] [address] [id number] Organization Unknown Address [address] [place] [address] [id number] Care Team Providers Care Racquet Maker Name Role Phone SOHA WHITFIELD, ROSENDO Thomas Attending Physician [phone] Vital Signs Unknown or Not Available. Allergies Allergy Code Allergy Type Reaction Status CAT GUT SUTURES {Clinical monitoring unavailable} 0 Drug allergy INFECTION Active Procedures Unknown or Not Available. History of Immunizations Unknown or Not Available. Problems Unknown or Not Available. Results Unknown or Not Available. Active Medications Medication Code Dose Units Frequency Route Modificatio n Start Date/Time clonazePAM 1MG Oral Tablet 006802 1 MILLIGRAMS DAILY ORAL 019 18:33 Prescription Detail TAKE 1 MILLIGRAMS ORAL DAILY LYRICA 100MG ORAL CAPSULE 0 100 MILLIGRAMS THREE TIMES A DAY ORAL 06/27/2018 18:33 Prescription Detail TAKE 100 MILLIGRAMS ORAL THREE TIMES A D AY Sertraline HCl 100MG Oral Tablet [id number] 100 MILLIGRAMS DAILY ORAL 9 18:33 Prescription Detail TAKE 100 MILLIGRAMS ORAL DAILY Medications Administered During Visit Unknown or Not Available. Encounters Encounter Diagnosis Diagnosis Code Start Date Palpitations R002 12/14/2020 Social History Smoking Status Code Start Date End Date Current every day smoker [id number] 05/23/2002 Patient Decision Aids Unknown or Not Available. Discharge Instructions You were admitted to [facility] on 12/14/2020 12:32 with a principal diagnosis of Palpitations You were discharged from [facility] on 12/14/2020 10:39 Should you have any questions prior to [...]
--- OUTSIDE RECORDS SUMMARY | 2023-06-30 09:30 | XMS_ITS | Continuity of Care Document ---
Author Name Unknown Organization [facility] Address [address] [place] [address] Care Team Providers Care Teleprinter Name Role Phone Jennifer Carvajal Primary Care Physician Encounter [facility] Date(s): 03/10/22 - 03/10/[address] [address] Discharge Disposition: Home or Self Care Attending Physician: Tara Reilly NP Admitting Physician: Tara Reilly NP Referring Physician: Tara Reilly COVERING AND LINING SUPERVISOR Allergies, Adverse Reactions, Alerts Substance Reaction Severity Status buPROPion Unknown Active varenicline Unknown Active Assessment and Plan Future Appointments Medications amitriptyline 25 mg oral tablet 25 [...] Confirmed 09/12/19 Active Obstructive sleep apnea syndrome Confirmed 04/20/21 Active Overweight Confirmed 09/12/19 Active 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
--- OUTSIDE RECORDS SUMMARY | 2023-06-30 09:30 | XMS_ITS | CCD ---
Author Name Unknown Address [address] [place] [phone] Organization Unknown Address [address] [place] [address] [phone] Care Team Providers Care Quarter Backer Name Role Phone SOHA ROSENDO Martha Attending Physician [phone] Vital Signs Unknown or Not Available. Allergies Allergy Code Allergy Type Reaction Status CAT GUT SUTURES {Clinical monitoring unavailable} 0 Drug allergy INFECTION Active Procedures Unknown or Not Available. History of Immunizations Unknown or Not Available. Problems Unknown or Not Available. Results Unknown or Not Available. Active Medications Medication Code Dose Units Frequency Route Modificatio n Start Date/Time clonazePAM 1MG Oral Tablet [id number] 1 MILLIGRAMS DAILY ORAL 019 18:33 Prescription Detail TAKE 1 MILLIGRAMS ORAL DAILY LYRICA 100MG ORAL CAPSULE 0 100 MILLIGRAMS THREE TIMES A DAY ORAL 06/27/2018 18:33 Prescription Detail TAKE 100 MILLIGRAMS ORAL THREE TIMES A D AY Sertraline HCl 100MG Oral Tablet 981103 100 MILLIGRAMS DAILY ORAL 9 18:33 Prescription Detail TAKE 100 MILLIGRAMS ORAL DAILY Medications Administered During Visit Unknown or Not Available. Encounters Encounter Diagnosis Diagnosis Code Start Date Other cardiomyopathies I428 3 Social History Smoking Status Code Start Date End Date Current every day smoker [id number] 05/23/2002 Patient Decision Aids Unknown or Not Available. Discharge Instructions You were admitted to [facility] on 05/13/2023 13:50 with a principal diagnosis of Other cardiomyopathies You were discharged from [facility] on 05/13/2023 13:50 Should you have any questions prior to [...]
--- OUTSIDE RECORDS SUMMARY | 2023-06-30 09:30 | XMS_ITS | Continuity of Care Document ---
Author Name Unknown Organization [facility] Address [address] [place] [address] Care Team Providers Care Out Of Town Collection Clerk Name Role Phone Jennifer Carvajal Primary Care Physician [phone] [facility]counter [facility] Date(s): 08/02/22 - 08/02/22 [facility] [address] [place] [address] Encounter Diagnosis Obstructive sleep apnea syndrome(Discharge Diagnosis) - 07/28/22 Obstructive sleep apnea (adult) (pediatric)(Final) - Discharge Disposition: Home or Self Care Attending Physician: Tara Reilly DRILL RIG OPERATOR HELPER Allergies, Adverse Reactions, Alerts Substance Reaction Severity Status buPROPion Unknown Active varenicline Unknown Active Assessment and Plan Future Appointments Functional Status 08/02/22 Other exposure to Infectious Disease Non e [...] Oral, TID Start Date: 02/02/22 Status: Ordered levothyroxine 25 mcg (0.025 mg) oral tablet 25 mcg = 1 tab, Oral, Daily, # 30 tab, 0 Refill(s) Start Date: 08/02/22 Status: Ordered losartan 50 mg oral tablet [...] hernia Confirmed 09/12/19 Active 1BiPAP 14/4/4 cm [place] Vital Signs Most recent to oldest [Reference Range]: 1 Weight 104.33 kg (08/02/22 11:18 AM) Weight Measured (lbs) 230.008 lb (08/02/22 11:18 AM) Height 165 cm (08/02/22 11:18 AM) Height/Length Measured (inches) 64.96 in ch (08/02/22 11:18 AM) BSA Measured 2.19 m2 (08/02/22 11:18 AM) Body Mass Index 38.32 kg/m2 (08/02/22 11:18 AM) Social History Social History Type Response Tobacco Current some day tob acco user Tobacco Use:. 1 Sex Female 1not daily, from time to time Progress note * Martir Pham M: PERFORM Event Display: Progress Note - Physician Authored Date: [id number] Physician Outpatient Note * Tara Reilly DRILL RIG OPERATOR HELPER: PERFORM Event Display: Office Clinic Note Physician Authored Date: [id number] DIANE GUILLERMO :1980 Age:42 years Sex:Female Visit Date:08/02/2022 Primary Care Physician: Jennifer Carvajal NP History of Present Illness Diane Guillermo has a Zoom visit for PENELOPE follow-up. Patient has given consent to have a telehealth visit. Patient is at home, provider is in the office. Diane was seen by me on 07/12/2022. She has a medical history to include anxiety, borderline personality disorder, OCD, narcissistic personality disorder, fibromyalgia, PTSD, IBS, GERD, diverticulitisand eczema. She reportedly had a sleep evaluation [...] EKG showed NSR with PAC's and PVC's. ?? Titration 09/09/2021 (BMI 36.04), CPAP titrated from 4 to 6 cm and BiPAP 8/4 cm all with residual snoring, recommended trying CPAP 8-12 cm. ?? Her insurance then required an updated PSG because she did not meet initial compliance requirements. ?? PSG 03/10/2022 (BMI 36.04), AHI 2/hr, RDI 9.9/hr, sp02 gabriella 91%, arousal index 20/hr,??PLMi 8.8/hr, PLMai 2.9/hr. ?? Last visit she was using BiPAP 14/4/4 cm and tolerated it much better but was still removing it every night in her sleep after only 1-2 hours. I suggested she set an alarm for two hours after she falls asleep so she can reapply BiPAP. ?? Diane says that she continues to remove the BiPAP in sleep and when she wakes up. She says it has gotten to the point that she is obsessing about having to use it and keep it on. She is concerned about the machine being taken away. This has caused her so much stress that she doesn't feel she is getting any benefit from it. She still tolerates it very well, no problem with the mask or pressures. She does get dryness in her moth/throat. She tried to increase the humidity but did not like the warmair. She has gained about 30 lbs in the past six months from trying to quit smoking. ? ESS today 09/13 COMPLIANCE DATA REVIEWED WITH PATIENT: Dates 06/28/22-07/27/22,??Days used ??, average use??3 hours, 27 minutes,??95 th percentile IPAP/EPAP pressure??8.9/4.8 cm,??95 th percentile air leak 2.8??lpm, AHI 0.2/hr Physical Exam Vitals & Measurements [...] and she still removed it every night so??Ichanged her over to BiPAP Imax 14 cm, Ramirez 4 cm, PS 4 cm. She tolerates BiPAP well but unfortunately is still not able to keep it on more than 1-3 hours despite using it every night for months. She has no specific complaints she just can't keep it on and this has caused her to have significant stress regarding using the machine to the point her sleep is much worse now. At this time she has failedPAP and I am putting in a d/c order to [facility]. She is not a candidate for Inspire and I would not recommend ENT surgery at this time. She is interested in pursuing an oral appliance so I went over this with her (how it works and potential side effects). I placed?? referral to Dr Moraes and I will see her back in about six months. I provided greater than 30 minutes in the care of this patient, more than half the time was spent in tydk-az-xies counseling. Ordered: Follow-Up Appointment Request LANAY, *Est. 02/02/23 +/- 28 days, Future Order, In [facility] ?? Referral Orders Referral Management, Medical Service: Other, Reason: Please consider treatment of PENELOPE with a mandibular advancment device, she failed CPAP/BiPAP Dr. Kirkpatrick, Start: 08/02/22 Referral Management, Medical Service: Other, Reason: Discontinue BiPAP Jeaneth, Start: 08/02/22 Problem List/Past Medical History Ongoing Amnesia Anal [...] capsule, 25 mg= 1 cap, Oral, TID levothyroxine 25 mcg (0.025 mg) oral tablet, 25 mcg= 1 tab, Oral, Daily losartan 50 mg oral tablet, 50 mg= [...] from time to time Electronically Signed on 08/02/22 11:40 AM Tara Reilly NP Patient Care team information Care Team Personnel Name: Jennifer Carvajal NP Position: No Access Member Role: Primary Care Physician Address: Address: [address] [place] [phone] [place]
[2023-06-30 15:21] LABS: ALT 28 U/L (14-59); AST 17 U/L (15-37); Albumin 3.9 g/dL (3.4-5.0); Alkaline Phosphatase 67 U/L (46-116); Anion Gap 11.2 mmol/L (3-11); BUN 9 mg/dL (7-18); Bilirubin, Total 0.2 mg/dL (0.2-1.0); CO2 24.8 mmol/L (21.0-32.0); CREATININE 0.8 mg/dL (0.55-1.02); Calcium 9.7 mg/dL (8.5-10.1); Chloride 102 mmol/L (98-107); Cholesterol 204 mg/dL (<200); Glucose 108 mg/dL (74-106); HDL Cholesterol 40 mg/dL (40-60); Potassium 4.5 mmol/L (3.5-5.1); Sodium 138 mmol/L (136-145); TSH (W/Ref FT4) 2.94 uIU/mL (0.36-3.74); Triglyceride 462 mg/dL (<150)
[2023-06-30 16:05] LABS: LDL CHOLESTEROL 108 mg/dL (<100)
== END 2023-06-30 09:27 | disposition home or self-care (01) ==
LOC: NCHCN 09:26
PROVIDERS: PCP Nurse Practitioner Community Health; Visit Provider Nurse Practitioner Family
DX: I10 Essential (primary) hypertension (principal); E03.9 Hypothyroidism, unspecified; E55.9 Vitamin D deficiency, unspecified; R53.83 Other fatigue; K21.9 Gastro-esophageal reflux disease without esophagitis
CPT/HCPCS: 80053; 80061; 82306; 83721; 85027; 83735; 84443

== ENCOUNTER 2024-10-30 18:05 | Outpatient (REF) | payer MEDICARE, MEDICAID, SELFPAY ==
[2024-10-30 15:45] LABS: HCT 39.8 % (36.0-46.0); HGB 13.3 g/dL (11.2-15.7); MCHC 33.4 % (32.0-36.0); MCV 99 fL (80-95); MPV 10.8 fL (8.0-11.0); Platelet Count 249 10^3/uL (130-400); RBC 4.03 10^6/uL (3.93-5.22); RDW 12.1 % (11.7-14.6); RDW-SD 43.7 fL; WBC 7.88 10^3/uL (4.4-10.8)
[2024-10-30 16:33] LABS: ALT 26 U/L (14-59); AST 22 U/L (15-37); Albumin 3.6 g/dL (3.4-5.0); Alkaline Phosphatase 67 U/L (46-116); Anion Gap 8.4 mmol/L (3-11); BUN 12 mg/dL (7-18); CO2 26.6 mmol/L (21.0-32.0); CREATININE 0.8 mg/dL (0.55-1.02); Chloride 104 mmol/L (98-107); Cholesterol 191 mg/dL (<200); Estimated GFR 92.54 (mL/min/1.73m2); Glucose 109 mg/dL (74-106); HDL Cholesterol 35 mg/dL (>or=50); Potassium 4.4 mmol/L (3.5-5.1); Sodium 139 mmol/L (136-145); TSH 5.03 uIU/mL (0.36-3.74); Total Protein 7.6 g/dL (6.4-8.2); Triglyceride 503 mg/dL (<150)
[2024-10-30 18:10] LABS: Bilirubin, Total 0.1 mg/dL (0.2-1.0); LDL CHOLESTEROL 97 mg/dL (<100)
== END 2024-10-30 18:06 | disposition home or self-care (01) ==
LOC: NCHCN 18:05
PROVIDERS: PCP Nurse Practitioner Community Health; Visit Provider Nurse Practitioner Family
DX: I10 Essential (primary) hypertension (principal); E03.9 Hypothyroidism, unspecified; E78.1 Pure hyperglyceridemia; Z87.738 Personal history of other specified (corrected) congenital malformations of digestive system; Z87.19 Personal history of other diseases of the digestive system
CPT/HCPCS: 80053; 80061; 83721; 85027; 84443

== ENCOUNTER 2025-03-15 18:44 | Outpatient (REF) | payer MEDICARE, MEDICAID, SELFPAY ==
[2025-03-15 21:18] LABS: TSH 5.91 uIU/mL (0.36-3.74)
== END 2025-03-15 18:45 | disposition home or self-care (01) ==
LOC: NCHCN 18:44
PROVIDERS: PCP Nurse Practitioner Community Health; Visit Provider Nurse Practitioner Family
DX: E03.9 Hypothyroidism, unspecified (principal)
CPT/HCPCS: 84443